=== PATIENT | female | born 1980 | race African-American/Black ===

== ENCOUNTER 2021-02-05 08:42 | Inpatient (IN) ==
[2021-02-05] MEDS ORDERED: ALBUTEROL 2.5 MG/3 ML NEB RESP TX PRN (11:39)
[2021-02-05 12:31] LABS: Albumin 3.2 G/DL (3.4-5.0); Bilirubin,Total 0.5 MG/DL (0.20-1.00); Calcium 9.1 MG/DL (8.5-10.1); Osmolality,Calculated 278.2 MOS/KG (273-304); Potassium 5.2 MMOL/L (3.5-5.1); Total Protein 7.6 G/DL (6.4-8.2)
[2021-02-05] MEDS ORDERED: ACETAMINOPHEN 325 MG/10.15 ML UDCUP PEG PRN (13:26)
[2021-02-05] MEDS: BACLOFEN 10 MG TABLET PEG PRN (17:15)
[2021-02-05] MEDS ORDERED: DEXTROSE 50% 25 GM/50 ML VIAL IV PRN (17:25)
[2021-02-05] MEDS ORDERED: GLUCAGON 1 MG VIAL IM PRN (17:25)
[2021-02-05] MEDS ORDERED: METOPROLOL TARTRATE 5 MG/5 ML VIAL IV ONE (18:45)
[2021-02-05] MEDS: INSULIN LISPRO 100 UNIT/ML SUBCUT SCH (18:57)
[2021-02-05] MEDS: METOPROLOL TARTRATE 5 MG/5 ML VIAL IV PRN (18:58)
[2021-02-05] MEDS: oxyCODONE/ACETAMINOPHEN 5-325 MG TABLET PEG SCH (21:10)
[2021-02-05] MEDS: ATORVASTATIN 40 MG TABLET PO SCH (21:10)
[2021-02-05] MEDS: DOCUSATE SODIUM 100 MG CAPSULE PO SCH (21:10)
[2021-02-05] MEDS: GABAPENTIN 50 MG/ML 30 ML/BOTTLE PEG SCH (21:11)
[2021-02-05] MEDS: FLUTICASONE 50 MCG NASAL SPRAY 16 GM BOTTLE BOTH NARES SCH (21:11)
[2021-02-05] MEDS: ACETAMINOPHEN 325 MG/10.15 ML UDCUP PEG PRN (22:49)
[2021-02-05] MEDS ORDERED: MORPHINE 2 MG/1 ML SYRINGE IV ONE (23:24)
[2021-02-05 23:50] LABS: ABG Base Excess 4.7 MMOL/L (-2.5-2.5); ABG HCO3 29.7 MMOL/L (20-26); ABG Oxygen Saturation 88.6 % (95-100); ABG PH 7.428 (7.35-7.45); ABG PO2 55.5 MM HG (80-95); ABG TCO2 31.1 MMOL/L (23-27)
[2021-02-06] MEDS: ALBUTEROL 1.25 MG/3 ML NEB RESP TX SCH ×5 (00:10→19:38)
[2021-02-06] MEDS: INSULIN LISPRO 100 UNIT/ML SUBCUT SCH ×4 (00:36→17:20)
[2021-02-06] MEDS: ONDANSETRON 4 MG/2 ML VIAL IV PRN ×2 (00:51→09:49)
[2021-02-06] MEDS ORDERED: LORazepam 2 MG/1 ML VIAL IV PRN (00:53)
[2021-02-06] MEDS ORDERED: MORPHINE 2 MG/1 ML SYRINGE IV PRN (00:53)
[2021-02-06 01:13] LABS: Bilirubin,Total 0.5 MG/DL (0.20-1.00); Calcium 9.2 MG/DL (8.5-10.1); Osmolality,Calculated 277.8 MOS/KG (273-304); Potassium 4.2 MMOL/L (3.5-5.1); Total Protein 7.5 G/DL (6.4-8.2)
[2021-02-06] MEDS: METOPROLOL TARTRATE 5 MG/5 ML VIAL IV PRN ×2 (01:18→13:53)
[2021-02-06 03:52] LABS: ABG Base Excess 5.1 MMOL/L (-2.5-2.5); ABG HCO3 31.5 MMOL/L (20-26); ABG Oxygen Saturation 97.5 % (95-100); ABG PCO2 55.3 MM HG (35-48); ABG PH 7.373 (7.35-7.45); ABG PO2 102.4 MM HG (80-95); ABG TCO2 33.2 MMOL/L (23-27)
[2021-02-06 05:44] LABS: Basophils % 0.2 % (0.0-0.8); Hematocrit 36.5 VOL% (35.7-47.0); Immature Granulocytes % 0.6 %; Immature Granulocytes Absolute 0.15 #; Lymphocytes # 1.9 10*3/uL (1.4-4.0); Lymphocytes % 7.6 % (21.3-54.2); Mean Corpuscular HGB Conc 30.1 GM/DL (32-36); Mean Corpuscular Volume 74.2 FL (87-102); Mean Platelet Volume 9.9 FL (9.6-12.0); Monocytes % 5.6 % (1.7-12.7); Platelet Count 341 T/CUMM (130-400); Red Blood Count 4.92 MC/CUMM (3.8-5.5); Red Cell Distribution Width 17.2 % (9.3-17.3); White Blood Count 24.6 T/CUMM (4-12)
[2021-02-06 06:16] LABS: Band Neutrophils 14 % (0-10); Lymphocytes 10 % (20-55); Platelet Estimate Normal; Segmented Neutrophils 69 % (50-85); Total Cells Counted 100
[2021-02-06 06:17] LABS: Anisocytosis 2+; Macrocytosis Slight
[2021-02-06 06:19] LABS: Albumin 3.1 G/DL (3.4-5.0); Bilirubin,Total 1.3 MG/DL (0.20-1.00); Calcium 9.7 MG/DL (8.5-10.1); Osmolality,Calculated 276.8 MOS/KG (273-304); Potassium 4.1 MMOL/L (3.5-5.1); Total Protein 7.4 G/DL (6.4-8.2)
[2021-02-06] MEDS ORDERED: LIDOCAINE 1% 20 ML VIAL MISC INJ ONE (07:30)
[2021-02-06] MEDS ORDERED: MIDAZOLAM 2 MG/2 ML VIAL IV ONE (07:30)
[2021-02-06] MEDS ORDERED: LIDOCAINE 2% 20 ML VIAL RESP TX ONE (07:30)
[2021-02-06] MEDS ORDERED: LIDOCAINE 2% VISCOUS 100 ML BOTTLE SWISH/SPIT ONE (07:30)
[2021-02-06] MEDS: ESCITALOPRAM 10 MG TABLET PEG SCH (08:31)
[2021-02-06] MEDS: DOCUSATE SODIUM 100 MG CAPSULE PO SCH ×2 (08:31→21:40)
[2021-02-06] MEDS: FLUTICASONE 50 MCG NASAL SPRAY 16 GM BOTTLE BOTH NARES SCH ×2 (08:31→21:40)
[2021-02-06] MEDS: ASPIRIN CHEW 81 MG TABLET PO SCH (08:31)
[2021-02-06] MEDS: GABAPENTIN 50 MG/ML 30 ML/BOTTLE PEG SCH ×2 (08:32→21:40)
[2021-02-06] MEDS: oxyCODONE/ACETAMINOPHEN 5-325 MG TABLET PEG SCH ×2 (08:32→21:40)
[2021-02-06] MEDS: FLUoxetine 10 MG CAPSULE PO SCH (08:33)
[2021-02-06] MEDS: PIPERACILLIN/TAZOBACTAM 3,375 MG in SODIUM CHLORIDE 0.9% 100 ML IV SCH ×2 (08:50→16:37)
[2021-02-06] MEDS ORDERED: METOPROLOL TARTRATE 25 MG TABLET PEG SCH (09:00)
[2021-02-06] MEDS: LOSARTAN 25 MG TABLET PEG SCH (15:32)
[2021-02-06] MEDS ORDERED: METOPROLOL TARTRATE 5 MG/5 ML VIAL IV ONE (18:05)
[2021-02-06] MEDS ORDERED: METOPROLOL TARTRATE 50 MG TABLET PEG SCH (21:00)
[2021-02-06] MEDS: ATORVASTATIN 40 MG TABLET PO SCH (21:40)
[2021-02-06] MEDS ORDERED: PHENYLEPHRINE DRIP 40 MG/250 ML PREMIX IV ONE (23:37)
[2021-02-06] MEDS: PHENYLEPHRINE DRIP 40 MG/250 ML PREMIX IV PRN (23:41)
[2021-02-06 23:48] LABS: Basophils # 0.1 10*3/uL (0.0-0.2); Basophils % 0.3 % (0.0-0.8); Eosinophils # 0.1 10*3/uL (0.0-0.87); Eosinophils % 0.6 % (0.00-10.9); Hematocrit 35.1 VOL% (35.7-47.0); Hemoglobin 10.7 GM/DL (12.0-16.0); Immature Granulocytes % 0.5 %; Immature Granulocytes Absolute 0.09 #; Lymphocytes % 16.9 % (21.3-54.2); Mean Corpuscular HGB Conc 30.5 GM/DL (32-36); Mean Corpuscular Volume 74.1 FL (87-102); Mean Platelet Volume 9.3 FL (9.6-12.0); Monocytes % 4.7 % (1.7-12.7); Platelet Count 307 T/CUMM (130-400); Red Blood Count 4.74 MC/CUMM (3.8-5.5); Red Cell Distribution Width 17.2 % (9.3-17.3); White Blood Count 17.5 T/CUMM (4-12)
[2021-02-07 00:05] LABS: Allen Test Positive; Pt O2 Delivery Device Other
[2021-02-07 00:07] LABS: ABG Base Excess 8.7 MMOL/L (-2.5-2.5); ABG HCO3 35.9 MMOL/L (20-26); ABG Oxygen Saturation 98.8 % (95-100); ABG PCO2 64.1 MM HG (35-48); ABG PH 7.366 (7.35-7.45); ABG PO2 133.8 MM HG (80-95); ABG TCO2 37.9 MMOL/L (23-27)
[2021-02-07 00:11] LABS: Calcium 8.9 MG/DL (8.5-10.1); Osmolality,Calculated 274.1 MOS/KG (273-304); Potassium 4.1 MMOL/L (3.5-5.1)
[2021-02-07] MEDS: ALBUTEROL 1.25 MG/3 ML NEB RESP TX SCH ×4 (00:45→19:35)
[2021-02-07] MEDS: PIPERACILLIN/TAZOBACTAM 3,375 MG in SODIUM CHLORIDE 0.9% 100 ML IV SCH ×3 (01:00→16:23)
[2021-02-07] MEDS: INSULIN LISPRO 100 UNIT/ML SUBCUT SCH ×4 (01:08→17:27)
[2021-02-07 04:55] LABS: ABG Base Excess 9.8 MMOL/L (-2.5-2.5); ABG HCO3 33.6 MMOL/L (20-26); ABG Oxygen Saturation 98.9 % (95-100); ABG PCO2 65.8 MM HG (35-48); ABG PH 7.368 (7.35-7.45); ABG TCO2 33.9 MMOL/L (23-27); Allen Test Positive; Pt O2 Delivery Device BIPAP
[2021-02-07 07:02] LABS: Basophils # 0.1 10*3/uL (0.0-0.2); Basophils % 0.5 % (0.0-0.8); Eosinophils # 0.1 10*3/uL (0.0-0.87); Eosinophils % 0.9 % (0.00-10.9); Hematocrit 41.1 VOL% (35.7-47.0); Hemoglobin 12.6 GM/DL (12.0-16.0); Immature Granulocytes % 0.5 %; Immature Granulocytes Absolute 0.06 #; Lymphocytes # 2.7 10*3/uL (1.4-4.0); Lymphocytes % 21.8 % (21.3-54.2); Mean Corpuscular HGB Conc 30.7 GM/DL (32-36); Mean Corpuscular Volume 74.6 FL (87-102); Mean Platelet Volume 10.9 FL (9.6-12.0); Monocytes % 5.3 % (1.7-12.7); Platelet Count 261 T/CUMM (130-400); Red Blood Count 5.51 MC/CUMM (3.8-5.5); White Blood Count 12.4 T/CUMM (4-12)
[2021-02-07 07:05] LABS: Anisocytosis 1+; Platelet Estimate Normal
[2021-02-07 07:06] LABS: Polychromasia Slight
[2021-02-07 07:14] LABS: Albumin 3.1 G/DL (3.4-5.0); Bilirubin,Total 0.6 MG/DL (0.20-1.00); Calcium 9.7 MG/DL (8.5-10.1); Osmolality,Calculated 267.5 MOS/KG (273-304); Potassium 4.3 MMOL/L (3.5-5.1); Total Protein 8.1 G/DL (6.4-8.2)
[2021-02-07] MEDS: FLUTICASONE 50 MCG NASAL SPRAY 16 GM BOTTLE BOTH NARES SCH ×2 (08:50→21:36)
[2021-02-07] MEDS: LOSARTAN 25 MG TABLET PEG SCH (08:50)
[2021-02-07] MEDS: DOCUSATE SODIUM 100 MG CAPSULE PO SCH ×2 (08:50→21:36)
[2021-02-07] MEDS: ASPIRIN CHEW 81 MG TABLET PO SCH (08:50)
[2021-02-07] MEDS: METOPROLOL TARTRATE 25 MG TABLET PEG SCH ×2 (08:51→21:36)
[2021-02-07] MEDS: ESCITALOPRAM 10 MG TABLET PEG SCH (08:51)
[2021-02-07] MEDS: GABAPENTIN 50 MG/ML 30 ML/BOTTLE PEG SCH ×2 (08:51→21:36)
[2021-02-07] MEDS: oxyCODONE/ACETAMINOPHEN 5-325 MG TABLET PEG SCH ×2 (08:51→21:36)
[2021-02-07] MEDS: FLUoxetine 10 MG CAPSULE PO SCH (08:52)
[2021-02-07] MEDS ORDERED: ETOMIDATE 20 MG/10 ML VIAL IV ONE ×2 (17:34→17:44)
[2021-02-07] MEDS ORDERED: SUCCINYLCHOLINE 200 MG/10 ML VIAL ONE (17:35)
[2021-02-07] MEDS ORDERED: SUCCINYLCHOLINE 200 MG/10 ML VIAL IV ONE (17:44)
[2021-02-07] MEDS ORDERED: SODIUM CHLORIDE 0.9% 500 ML IV ONE ×2 (17:44→18:55)
[2021-02-07 18:12] LABS: ABG Base Excess 8.2 MMOL/L (-2.5-2.5); ABG HCO3 32.1 MMOL/L (20-26); ABG PCO2 47.4 MM HG (35-48); ABG PH 7.456 (7.35-7.45); ABG TCO2 29.8 MMOL/L (23-27); Allen Test Positive; Pt O2 Delivery Device Ventilator
[2021-02-07] MEDS: MIDAZOLAM 100 MG in SODIUM CHLORIDE 0.9% 80 ML IV PRN (18:21)
[2021-02-07] MEDS: ATORVASTATIN 40 MG TABLET PO SCH (21:36)
[2021-02-08] MEDS: ALBUTEROL 1.25 MG/3 ML NEB RESP TX SCH ×4 (01:03→19:11)
[2021-02-08] MEDS: INSULIN LISPRO 100 UNIT/ML SUBCUT SCH ×4 (01:39→17:56)
[2021-02-08] MEDS: PIPERACILLIN/TAZOBACTAM 3,375 MG in SODIUM CHLORIDE 0.9% 100 ML IV SCH ×3 (01:42→16:05)
[2021-02-08 04:31] LABS: ABG Base Excess 5.3 MMOL/L (-2.5-2.5); ABG HCO3 27.6 MMOL/L (20-26); ABG PCO2 33.4 MM HG (35-48); ABG PH 7.535 (7.35-7.45); ABG PO2 65.1 MM HG (80-95); ABG TCO2 28.6 MMOL/L (23-27)
[2021-02-08 05:42] LABS: Basophils # 0.1 10*3/uL (0.0-0.2); Basophils % 0.5 % (0.0-0.8); Eosinophils # 0.2 10*3/uL (0.0-0.87); Eosinophils % 1.5 % (0.00-10.9); Hematocrit 31.8 VOL% (35.7-47.0); Immature Granulocytes % 1.2 %; Immature Granulocytes Absolute 0.16 #; Lymphocytes # 4.4 10*3/uL (1.4-4.0); Lymphocytes % 32.6 % (21.3-54.2); Mean Corpuscular HGB Conc 30.2 GM/DL (32-36); Mean Corpuscular Volume 73.8 FL (87-102); Mean Platelet Volume 10.3 FL (9.6-12.0); Monocytes % 6.5 % (1.7-12.7); Neutrophils % 57.7 % (38.7-73.9); Platelet Count 341 T/CUMM (130-400); Red Blood Count 4.31 MC/CUMM (3.8-5.5); Red Cell Distribution Width 16.6 % (9.3-17.3); White Blood Count 13.6 T/CUMM (4-12)
[2021-02-08 06:00] LABS: Hemoglobin 9.6 GM/DL (12.0-16.0)
[2021-02-08 06:52] LABS: Calcium 9.4 MG/DL (8.5-10.1); Potassium 3.6 MMOL/L (3.5-5.1)
[2021-02-08] MEDS: GABAPENTIN 50 MG/ML 30 ML/BOTTLE PEG SCH ×2 (08:33→21:30)
[2021-02-08] MEDS: METOPROLOL TARTRATE 25 MG TABLET PEG SCH ×2 (08:34→21:30)
[2021-02-08] MEDS: FLUoxetine 10 MG CAPSULE PO SCH (08:34)
[2021-02-08] MEDS: ASPIRIN CHEW 81 MG TABLET PO SCH (08:34)
[2021-02-08] MEDS: LOSARTAN 25 MG TABLET PEG SCH (08:34)
[2021-02-08] MEDS: ESCITALOPRAM 10 MG TABLET PEG SCH (08:34)
[2021-02-08] MEDS: DOCUSATE SODIUM 100 MG CAPSULE PO SCH ×2 (08:34→21:29)
[2021-02-08] MEDS: ACETAMINOPHEN 325 MG/10.15 ML UDCUP PEG PRN (08:35)
[2021-02-08] MEDS: oxyCODONE/ACETAMINOPHEN 5-325 MG TABLET PEG SCH ×2 (08:35→22:35)
[2021-02-08] MEDS: FLUTICASONE 50 MCG NASAL SPRAY 16 GM BOTTLE BOTH NARES SCH ×2 (08:36→21:30)
[2021-02-08] MEDS: PHENYLEPHRINE DRIP 40 MG/250 ML PREMIX IV PRN (17:21)
[2021-02-08] MEDS: ATORVASTATIN 40 MG TABLET PO SCH (21:30)
[2021-02-09] MEDS: ALBUTEROL 1.25 MG/3 ML NEB RESP TX SCH ×4 (00:26→19:10)
[2021-02-09] MEDS: INSULIN LISPRO 100 UNIT/ML SUBCUT SCH ×4 (00:33→18:10)
[2021-02-09] MEDS: PIPERACILLIN/TAZOBACTAM 3,375 MG in SODIUM CHLORIDE 0.9% 100 ML IV SCH ×3 (00:35→16:11)
[2021-02-09] MEDS: BACLOFEN 10 MG TABLET PEG PRN ×2 (01:28→08:19)
[2021-02-09 03:52] LABS: ABG Base Excess 4.2 MMOL/L (-2.5-2.5); ABG HCO3 28.2 MMOL/L (20-26); ABG PCO2 32.7 MM HG (35-48); ABG PH 7.522 (7.35-7.45); ABG TCO2 24.3 MMOL/L (23-27)
[2021-02-09 04:49] LABS: Basophils # 0.1 10*3/uL (0.0-0.2); Basophils % 0.5 % (0.0-0.8); Eosinophils # 0.5 10*3/uL (0.0-0.87); Hematocrit 33.5 VOL% (35.7-47.0); Hemoglobin 10.8 GM/DL (12.0-16.0); Immature Granulocytes Absolute 0.17 #; Lymphocytes % 24.3 % (21.3-54.2); Mean Corpuscular HGB Conc 32.2 GM/DL (32-36); Mean Corpuscular Volume 71.7 FL (87-102); Mean Platelet Volume 10.1 FL (9.6-12.0); Monocytes % 5.2 % (1.7-12.7); Platelet Count 345 T/CUMM (130-400); Red Blood Count 4.67 MC/CUMM (3.8-5.5); Red Cell Distribution Width 16.6 % (9.3-17.3); White Blood Count 16.6 T/CUMM (4-12)
[2021-02-09 05:19] LABS: Hypochromasia 2+; Microcytosis 1+; Platelet Estimate Normal
[2021-02-09] MEDS: GABAPENTIN 50 MG/ML 30 ML/BOTTLE PEG SCH ×2 (08:19→21:17)
[2021-02-09] MEDS: METOPROLOL TARTRATE 25 MG TABLET PEG SCH (08:19)
[2021-02-09] MEDS: ASPIRIN CHEW 81 MG TABLET PO SCH (08:19)
[2021-02-09] MEDS: ESCITALOPRAM 10 MG TABLET PEG SCH (08:19)
[2021-02-09] MEDS: DOCUSATE SODIUM 100 MG CAPSULE PO SCH ×2 (08:19→21:16)
[2021-02-09] MEDS: oxyCODONE/ACETAMINOPHEN 5-325 MG TABLET PEG SCH ×2 (08:22→21:17)
[2021-02-09] MEDS: FLUoxetine 10 MG CAPSULE PO SCH (09:21)
[2021-02-09] MEDS: FLUTICASONE 50 MCG NASAL SPRAY 16 GM BOTTLE BOTH NARES SCH ×2 (09:22→21:17)
[2021-02-09] MEDS: ACETAMINOPHEN 325 MG/10.15 ML UDCUP PEG PRN (16:10)
[2021-02-09] MEDS: MIDAZOLAM 100 MG in SODIUM CHLORIDE 0.9% 80 ML IV PRN (16:30)
[2021-02-09] MEDS ORDERED: SODIUM BICARBONATE 50 MEQ/50 ML VIAL IV ONE (18:56)
[2021-02-09] MEDS: ATORVASTATIN 40 MG TABLET PO SCH (21:17)
[2021-02-10] MEDS: INSULIN LISPRO 100 UNIT/ML SUBCUT SCH ×4 (00:02→18:31)
[2021-02-10] MEDS: PIPERACILLIN/TAZOBACTAM 3,375 MG in SODIUM CHLORIDE 0.9% 100 ML IV SCH ×3 (00:16→16:25)
[2021-02-10] MEDS: ALBUTEROL 1.25 MG/3 ML NEB RESP TX SCH ×4 (01:00→19:30)
[2021-02-10 04:57] LABS: Basophils # 0.1 10*3/uL (0.0-0.2); Basophils % 0.7 % (0.0-0.8); Eosinophils # 0.5 10*3/uL (0.0-0.87); Eosinophils % 4.7 % (0.00-10.9); Hematocrit 29.8 VOL% (35.7-47.0); Hemoglobin 9.3 GM/DL (12.0-16.0); Immature Granulocytes % 1.5 %; Immature Granulocytes Absolute 0.16 #; Lymphocytes % 28.8 % (21.3-54.2); Mean Corpuscular HGB Conc 31.2 GM/DL (32-36); Mean Corpuscular Volume 74.3 FL (87-102); Monocytes % 4.7 % (1.7-12.7); Neutrophils % 59.6 % (38.7-73.9); Platelet Count 343 T/CUMM (130-400); Red Blood Count 4.01 MC/CUMM (3.8-5.5); Red Cell Distribution Width 16.9 % (9.3-17.3); White Blood Count 10.5 T/CUMM (4-12)
[2021-02-10 05:05] LABS: ABG Base Excess 3.6 MMOL/L (-2.5-2.5); ABG HCO3 27.7 MMOL/L (20-26); ABG Oxygen Saturation 97.9 % (95-100); ABG PCO2 39.8 MM HG (35-48); ABG PO2 107.6 MM HG (80-95); ABG TCO2 28.9 MMOL/L (23-27)
[2021-02-10 05:25] LABS: Albumin 2.7 G/DL (3.4-5.0); Bilirubin,Total 0.5 MG/DL (0.20-1.00); Calcium 9.1 MG/DL (8.5-10.1); Osmolality,Calculated 276.7 MOS/KG (273-304); Potassium 3.8 MMOL/L (3.5-5.1); Total Protein 6.8 G/DL (6.4-8.2)
[2021-02-10 05:46] LABS: Band Neutrophils 1 % (0-10); Eosinophils 3 % (0-10); Hypochromasia Slight; Lymphocytes 26 % (20-55); Microcytosis Slight; Platelet Estimate Normal; Segmented Neutrophils 64 % (50-85); Total Cells Counted 100
[2021-02-10] MEDS: DOCUSATE SODIUM 100 MG CAPSULE PO SCH (08:38)
[2021-02-10] MEDS: ESCITALOPRAM 10 MG TABLET PEG SCH (08:39)
[2021-02-10] MEDS: ASPIRIN CHEW 81 MG TABLET PO SCH (08:39)
[2021-02-10] MEDS: BACLOFEN 10 MG TABLET PEG PRN (08:39)
[2021-02-10] MEDS: FLUoxetine 10 MG CAPSULE PO SCH (08:40)
[2021-02-10] MEDS: GABAPENTIN 50 MG/ML 30 ML/BOTTLE PEG SCH ×2 (08:40→20:21)
[2021-02-10] MEDS: oxyCODONE/ACETAMINOPHEN 5-325 MG TABLET PEG SCH ×2 (08:42→20:21)
[2021-02-10] MEDS: FLUTICASONE 50 MCG NASAL SPRAY 16 GM BOTTLE BOTH NARES SCH ×2 (08:54→20:32)
[2021-02-10] MEDS: METOPROLOL TARTRATE 25 MG TABLET PEG SCH ×2 (10:07→20:21)
[2021-02-10] MEDS: ENOXAPARIN 40 MG/0.4 ML SYRINGE SUBCUT SCH (10:08)
[2021-02-10 11:46] VITALS: BP 149/95
[2021-02-10] MEDS ORDERED: BISACODYL 10 MG SUPP RECTAL PRN (15:48)
[2021-02-10] MEDS: MIDAZOLAM 100 MG in SODIUM CHLORIDE 0.9% 80 ML IV PRN (17:09)
[2021-02-10] MEDS: DOCUSATE SODIUM 100 MG/10 ML UDCUP PO SCH (20:21)
[2021-02-10] MEDS: ATORVASTATIN 40 MG TABLET PO SCH (20:21)
[2021-02-11] MEDS: INSULIN LISPRO 100 UNIT/ML SUBCUT SCH ×3 (00:21→12:27)
[2021-02-11] MEDS: PIPERACILLIN/TAZOBACTAM 3,375 MG in SODIUM CHLORIDE 0.9% 100 ML IV SCH ×2 (00:45→08:44)
[2021-02-11] MEDS: ALBUTEROL 1.25 MG/3 ML NEB RESP TX SCH ×3 (00:55→13:17)
[2021-02-11 04:38] LABS: ABG Base Excess 3.3 MMOL/L (-2.5-2.5); ABG HCO3 27.4 MMOL/L (20-26); ABG Oxygen Saturation 99.8 % (95-100); ABG PCO2 42.6 MM HG (35-48); ABG PH 7.425 (7.35-7.45); ABG TCO2 25.4 MMOL/L (23-27)
[2021-02-11 05:22] LABS: Basophils # 0.1 10*3/uL (0.0-0.2); Basophils % 0.9 % (0.0-0.8); Eosinophils # 0.5 10*3/uL (0.0-0.87); Eosinophils % 4.8 % (0.00-10.9); Hematocrit 32.8 VOL% (35.7-47.0); Hemoglobin 10.2 GM/DL (12.0-16.0); Immature Granulocytes % 1.7 %; Immature Granulocytes Absolute 0.17 #; Lymphocytes # 2.9 10*3/uL (1.4-4.0); Lymphocytes % 28.2 % (21.3-54.2); Mean Corpuscular HGB Conc 31.1 GM/DL (32-36); Mean Corpuscular Volume 73.9 FL (87-102); Mean Platelet Volume 9.5 FL (9.6-12.0); Monocytes % 5.2 % (1.7-12.7); Neutrophils % 59.2 % (38.7-73.9); Platelet Count 393 T/CUMM (130-400); Red Blood Count 4.44 MC/CUMM (3.8-5.5); Red Cell Distribution Width 16.9 % (9.3-17.3); White Blood Count 10.2 T/CUMM (4-12)
[2021-02-11 05:43] LABS: Albumin 2.9 G/DL (3.4-5.0); Bilirubin,Total 0.5 MG/DL (0.20-1.00); Calcium 9.2 MG/DL (8.5-10.1); Potassium 4.1 MMOL/L (3.5-5.1); Total Protein 7.5 G/DL (6.4-8.2)
[2021-02-11] MEDS: ASPIRIN CHEW 81 MG TABLET PO SCH (08:44)
[2021-02-11] MEDS: FLUTICASONE 50 MCG NASAL SPRAY 16 GM BOTTLE BOTH NARES SCH (08:45)
[2021-02-11] MEDS: GABAPENTIN 50 MG/ML 30 ML/BOTTLE PEG SCH (08:45)
[2021-02-11] MEDS: oxyCODONE/ACETAMINOPHEN 5-325 MG TABLET PEG SCH (08:45)
[2021-02-11] MEDS: DOCUSATE SODIUM 100 MG/10 ML UDCUP PO SCH (08:45)
[2021-02-11] MEDS: METOPROLOL TARTRATE 25 MG TABLET PEG SCH (08:45)
[2021-02-11] MEDS: ESCITALOPRAM 10 MG TABLET PEG SCH (08:45)
[2021-02-11] MEDS: FLUoxetine 10 MG CAPSULE PO SCH (08:46)
[2021-02-11] MEDS: ENOXAPARIN 40 MG/0.4 ML SYRINGE SUBCUT SCH (08:46)
[2021-02-11] MEDS ORDERED: PANTOPRAZOLE 40 MG VIAL IV SCH (09:00)
[2021-02-11] MEDS ORDERED: DORNASE ALFA 2.5 MG/2.5 ML VIAL RESP TX SCH (19:00)
== END 2021-02-11 18:06 | DRG 870 ==
LOC: SUATTDRO 11:11 → N.CC 11:11 → N.ICU 02-09 00:52
PROVIDERS: ADMIT Internal Medicine; ATTEND Family Medicine